=== PATIENT | female | born 1950 | race Caucasian/White ===

== ENCOUNTER 2017-10-17 20:59 | Emergency (ER) | payer MEDICARE, OTHER ==
--- NOTE | 2017-10-17 22:31 | RAD ---
THREE VIEWS OF RIGHT ANKLE: 10/17/17 COMPARISON: None. HISTORY: Pain, fall. FINDINGS: There is dorsal degenerative change involving the mid foot. The talar dome and ankle mortise are inta ct with no displaced fracture or evidence of dislocation seen. IMPRESSION: No displaced fracture or evidence of dislocation seen. POS: [facility]
--- NOTE | 2017-10-17 22:32 | RAD ---
FOUR VIEWS OF THE RIGHT KNEE: 10/17/17 COMPARISON: None. HISTORY: Injury, pain. FINDINGS: There is mild lateral compartment narrowing. There is moderate medial compartment narrowing with medi al osteophyte formation noted. There is mild patellofemoral joint space narrowing. No knee joint effu harshal, displaced fracture, or evidence of dislocation. IMPRESSION: Multicompartment degenerative change, most prominent medially. No acute osseous abnormality. POS: [facility]
--- NOTE | 2017-10-17 22:33 | RAD ---
TWO VIEWS OF THE RIGHT TIBIA AND FIBULA: 10/17/17 COMPARISON: None. HISTORY: Injury, trauma, pain. FINDINGS: No displaced fracture or evidence of dislocation seen. IMPRESSION: No acute findings. POS: [facility]
--- NOTE | 2017-10-18 00:03 | ULT ---
LEFT LOWER EXTREMITY VENOUS DOPPLER ULTRASOUND: 10/17/17 COMPARISON: None. HISTORY: Swelling, pain, redness, and edema, assess for DVT. TECHNIQUE: Multiplanar gould scale sonographic imaging of the venous structures of the left lower extremity obtai yue with color flow and spectral analysis. FINDINGS: Left common femoral vein, femoral vein, popliteal vein, greater saphenous vein, profunda femoral vein , posterior tibial vein and anterior tibial vein are patent. There is normal blood flow, augmentation and compression within the deep venous system of the left lower extremity with no evidence for DVT. IMPRESSION: No evidence for deep venous thrombosis of the left lower extremity. POS: [facility]
== END 2017-10-18 00:29 | disposition home or self-care (01) ==
LOC: ERS 20:59
DX: S80.01XA Contusion of right knee, initial encounter (principal); F31.9 Bipolar disorder, unspecified; F20.9 Schizophrenia, unspecified; K21.9 Gastro-esophageal reflux disease without esophagitis; E78.5 Hyperlipidemia, unspecified; F03.90 Unspecified dementia, unspecified severity, without behavioral disturbance, psychotic disturbance, mood disturbance, and anxiety; W05.0XXA Fall from non-moving wheelchair, initial encounter

== ENCOUNTER 2017-12-04 16:37 | Emergency (ER) | payer MEDICARE, OTHER ==
[2017-12-04 17:32] LABS: #Basophils 0.1 thou/uL (0.0-0.2); #Eosinphils 0.1 thou/uL (0.0-0.7); #Lymphocytes 1.9 thou/uL (1.20-3.40); #Monocytes 0.9 thou/uL (0.11-0.59); %Basophils 0.9 % (0.0-1.0); %Eosinophils 2.1 % (0.0-10.0); %Lymphocytes 31.5 % (21.0-51.0); %Monocytes 14.9 % (0.0-10.0); %Neutrophils 50.5 % (42.0-75.0); Hemoglobin 14.1 g/dL (12.0-16.0); Mean Corpuscular HGB CONC 31.7 g/dL (32.0-36.0); Mean Corpuscular Hemoglobin 28.6 pg (27.0-31.0); Mean Corpuscular Volume 90.3 fL (78.0-98.0); Mean Platelet Volume 8.7 fL (7.4-10.4); Platelet Count 178 thou/uL (130-400); RBC Distribution Width 13.2 % (11.5-14.5); Red Blood Cell (RBC) Count 4.94 mill/uL (4.20-5.40)
[2017-12-04 17:55] LABS: ALT (SGPT) 45 U/L (8-55); AST (SGOT) 47 U/L (5-34); Alkaline Phosphatase 90 U/L (40-150); Anion Gap 11 mmol/L (10-20); BUN (Urea Nitrogen) 9 mg/dL (9.8-20.1); Bilirubin, Total 0.3 mg/dL (0.2-1.2); Calc. Creatinine Clearance 0 mL/min (70-130); Calcium 9.2 mg/dL (7.8-10.44); Carbon Dioxide 29 mmol/L (23-31); Chloride 104 mmol/L (98-107); Estimated GFR-MDRD 51; Globulin 3.4 g/dL (2.4-3.5); Glucose 112 mg/dL (80-115); Potassium 3.9 mmol/L (3.5-5.1); Protein, Total 7.4 g/dL (6.0-8.3); Sodium 140 mmol/L (136-145)
--- NOTE | 2017-12-04 18:31 | ULT ---
VENOUS DOPPLER ULTRASOUND OF THE LEFT LOWER EXTREMITY: 12/04/17 HISTORY: Left lower extremity edema, pain and redness. TECHNIQUE: Garcia scale ultrasound with color flow and spectral doppler imaging of the deep venous system of the l eft lower extremity was performed. FINDINGS: There is good flow, compression, and augmentation noted in the left common femoral, femoral, deep fem oral, popliteal, posterior tibial and greater saphenous veins. IMPRESSION: No radiographic evidence of acute cardiopulmonary process. POS: [facility]
[2017-12-04] MEDS ORDERED: Acetaminophen 500 MG TAB ONE (18:43)
[2017-12-04] MEDS ORDERED: cefTRIAXone\\ROCEPHIN 2 GM VIAL ONE (18:43)
[2017-12-04 19:03] LABS: Bilirubin Negative (Negative); Blood, Urine Negative (Negative); Clarity CLEAR (Clear); Glucose, Urine (Dipstick) Negative (Negative); Leukocyte Negative (Negative); Nitrite Negative (Negative); Protein, Urine (Dipstick) Negative (Neg-Trace); Specific Gravity, Urine 1.008 (1.002-1.036); Urobilinogen 0.2 mg/dL (0.2-1.0); pH, Urine 7.5 (5.0-9.0)
== END 2017-12-04 20:08 | disposition home or self-care (01) ==
LOC: ERS 16:37
DX: L03.116 Cellulitis of left lower limb (principal); E11.9 Type 2 diabetes mellitus without complications; F20.9 Schizophrenia, unspecified; F31.9 Bipolar disorder, unspecified; Z79.899 Other long term (current) drug therapy
CPT/HCPCS: 80053; 81003; 85025; 85379; 96365; J0696

== ENCOUNTER 2021-08-11 15:32 | Inpatient (IN) | payer MEDICARE, MEDICAID ==
[~2021-08-11 15:32] MED LIST: Iopamidol 370 76% 100 ML VIAL ONE
[2021-08-11 16:30] LABS: #Eosinphils 0.1 thou/uL (0.0-0.7); #Lymphocytes 2.2 thou/uL (1.20-3.40); #Monocytes 0.8 thou/uL (0.11-0.59); %Basophils 0.4 % (0.0-1.0); %Eosinophils 1.2 % (0.0-10.0); %Lymphocytes 27.2 % (21.0-51.0); %Monocytes 10.1 % (0.0-10.0); %Neutrophils 61.1 % (42.0-75.0); Hemoglobin 14.5 g/dL (12.0-16.0); Mean Corpuscular HGB CONC 32.9 g/dL (32.0-36.0); Mean Corpuscular Hemoglobin 29.4 pg (27.0-31.0); Mean Corpuscular Volume 89.4 fL (78.0-98.0); Mean Platelet Volume 8.3 fL (7.4-10.4); Platelet Count 194 thou/uL (130-400); Red Blood Cell (RBC) Count 4.92 mill/uL (4.20-5.40); White Blood Cell (WBC) Count 8.1 thou/uL (4.8-10.8)
[2021-08-11 16:49] LABS: ALT (SGPT) 9 U/L (8-55); AST (SGOT) 11 U/L (5-34); Alkaline Phosphatase 88 U/L (40-110); Anion Gap 13 mmol/L (10-20); BUN (Urea Nitrogen) 14 mg/dL (9.8-20.1); Bilirubin, Total 0.3 mg/dL (0.2-1.2); Calc. Creatinine Clearance 0 mL/min (70-130); Calcium 9.2 mg/dL (7.8-10.44); Carbon Dioxide 29 mmol/L (23-31); Chloride 102 mmol/L (98-107); Globulin 3.3 g/dL (2.4-3.5); Glucose 87 mg/dL (80-115); Potassium 3.9 mmol/L (3.5-5.1); Protein, Total 7.3 g/dL (5.8-8.1); Sodium 140 mmol/L (136-145)
[2021-08-11 17:21] LABS: Bacteria/HPF None Seen HPF (None Seen); Bilirubin Negative (Negative); Blood, Urine Negative (Negative); Clarity Clear (Clear); Glucose, Urine (Dipstick) Normal (Negative); Ketone, Urine Negative (Negative); Leukocyte 75 Leu/uL (Negative); Nitrite Negative (Negative); Protein, Urine (Dipstick) Negative (Neg-Trace); RBC/HPF 0-3 HPF (0-3); Specific Gravity, Urine 1.018 (1.002-1.036); Squamous Epithelial 0-3 HPF (0-3); pH, Urine 6.5 (5.0-9.0)
[2021-08-11] MEDS ORDERED: Acetaminophen 650 MG Suppository PR PRN (21:03)
[2021-08-11] MEDS ORDERED: Ondansetron ODT 4 MG TAB PO PRN (21:03)
[2021-08-11] MEDS ORDERED: Ondansetron PF 4 MG/2 ML Vial IVP PRN (21:03)
[2021-08-11] MEDS ORDERED: Acetaminophen 325 MG TAB PO PRN (21:03)
[2021-08-11 21:53] VITALS: BMI 27.3
[2021-08-12] MEDS ORDERED: Dextrose 50% Abboject 50 ML SYRINGE SLOW IVP PRN (00:26)
[2021-08-12] MEDS ORDERED: HumaLOG 300 UNITS/3 ML VIAL SC PRN ×2 (00:26)
[2021-08-12] MEDS ORDERED: Dextrose 5% in Water 1,000 ML IV PRN (00:26)
[2021-08-12 02:45] LABS: Amphetamine Not Detected (NotDetected); Barbiturates Screen Not Detected (NotDetected); Benzodiazepine Screen Not Detected (NotDetected); Cocaine Metabolite Screen Not Detected (NotDetected); Methadone Not Detected (NotDetected); Methamphetamine Not Detected (NotDetected); Opiate Screen Not Detected (NotDetected); Oxycodone Screen Not Detected (NotDetected); Phencyclidine (PCP) Not Detected (NotDetected); THC/Cannabinoid Screen Not Detected (NotDetected); Tricyclic Screen Not Detected (NotDetected)
[2021-08-12 04:25] LABS: #Eosinphils 0.1 thou/uL (0.0-0.7); #Lymphocytes 2.3 thou/uL (1.20-3.40); #Monocytes 0.8 thou/uL (0.11-0.59); #Neutrophils 5.8 thou/uL (1.40-6.50); %Basophils 0.5 % (0.0-1.0); %Eosinophils 1.1 % (0.0-10.0); %Lymphocytes 25.8 % (21.0-51.0); %Neutrophils 63.6 % (42.0-75.0); Hemoglobin 14.1 g/dL (12.0-16.0); Mean Corpuscular Hemoglobin 29.5 pg (27.0-31.0); Mean Platelet Volume 8.7 fL (7.4-10.4); Platelet Count 170 thou/uL (130-400); RBC Distribution Width 12.8 % (11.5-14.5); Red Blood Cell (RBC) Count 4.79 mill/uL (4.20-5.40); White Blood Cell (WBC) Count 9.1 thou/uL (4.8-10.8)
[2021-08-12 04:46] LABS: Anion Gap 12 mmol/L (10-20); BUN (Urea Nitrogen) 13 mg/dL (9.8-20.1); Calc. Creatinine Clearance 81 mL/min (70-130); Calcium 9.6 mg/dL (7.8-10.44); Carbon Dioxide 32 mmol/L (23-31); Chloride 102 mmol/L (98-107); Glucose 100 mg/dL (80-115); Sodium 142 mmol/L (136-145)
[2021-08-12] MEDS: cefTRIAXone\\ROCEPHIN 1 GM in Sodium Chloride 0.9% 100 ML IVPB SCH (08:11)
[2021-08-12] MEDS: Enoxaparin Sodium 40 MG/0.4 ML SYRINGE SC SCH (08:11)
[2021-08-13] MEDS: Enoxaparin Sodium 40 MG/0.4 ML SYRINGE SC SCH (07:55)
[2021-08-13] MEDS: cefTRIAXone\\ROCEPHIN 1 GM in Sodium Chloride 0.9% 100 ML IVPB SCH (07:55)
[2021-08-13 11:51] VITALS: TEMP 97.6
[2021-08-13 12:31] VITALS: BP 150/79
== END 2021-08-13 17:30 | DRG 689 ==
LOC: ERS 15:32 → 2NO 20:25 → OBSVTOIN 08-12 12:22
PROVIDERS: ADMIT Internal Medicine; ATTEND Internal Medicine
DX: N39.0 Urinary tract infection, site not specified (principal); G93.41 Metabolic encephalopathy; F01.50 Vascular dementia, unspecified severity, without behavioral disturbance, psychotic disturbance, mood disturbance, and anxiety; Z20.822 Contact with and (suspected) exposure to COVID-19; E11.9 Type 2 diabetes mellitus without complications; K21.9 Gastro-esophageal reflux disease without esophagitis; E78.5 Hyperlipidemia, unspecified; F20.9 Schizophrenia, unspecified; F31.9 Bipolar disorder, unspecified; F40.9 Phobic anxiety disorder, unspecified; Z88.5 Allergy status to narcotic agent; Z88.8 Allergy status to other drugs, medicaments and biological substances; Z79.899 Other long term (current) drug therapy; Z90.49 Acquired absence of other specified parts of digestive tract; Z90.09 Acquired absence of other part of head and neck
CPT/HCPCS: 36415; 36416; 70450; 71045; 74177; 80048; 80053; 80306; 81003; 81015; 84443; 84484; 85025; 87086; 93005; 93306; J0696; J1650; J3490; Q9967; U0003; U0005

== ENCOUNTER 2021-11-09 09:50 | Emergency (ER) | payer MEDICARE, OTHER ==
[2021-11-09 11:59] LABS: #Eosinphils 0.1 thou/uL (0.0-0.7); #Lymphocytes 1.5 thou/uL (1.20-3.40); #Monocytes 0.8 thou/uL (0.11-0.59); #Neutrophils 3.5 thou/uL (1.40-6.50); %Basophils 0.2 % (0.0-1.0); %Eosinophils 2.2 % (0.0-10.0); %Lymphocytes 25.6 % (21.0-51.0); %Monocytes 12.9 % (0.0-10.0); %Neutrophils 59.2 % (42.0-75.0); Hemoglobin 13.1 g/dL (12.0-16.0); Mean Corpuscular HGB CONC 32.2 g/dL (32.0-36.0); Mean Corpuscular Hemoglobin 29.2 pg (27.0-31.0); Mean Corpuscular Volume 90.7 fL (78.0-98.0); Mean Platelet Volume 8.7 fL (7.4-10.4); Platelet Count 193 thou/uL (130-400); RBC Distribution Width 13.1 % (11.5-14.5); Red Blood Cell (RBC) Count 4.47 mill/uL (4.20-5.40)
[2021-11-09 12:13] LABS: Bacteria/HPF None Seen HPF (None Seen); Bilirubin Negative (Negative); Blood, Urine Negative (Negative); Clarity Clear (Clear); Glucose, Urine (Dipstick) Normal (Negative); Ketone, Urine Negative (Negative); Leukocyte 25 Leu/uL (Negative); Nitrite Negative (Negative); Protein, Urine (Dipstick) Negative (Neg-Trace); RBC/HPF 0-3 HPF (0-3); Specific Gravity, Urine 1.008 (1.002-1.036); Squamous Epithelial 0-3 HPF (0-3); pH, Urine 7.5 (5.0-9.0)
[2021-11-09 12:31] LABS: ALT (SGPT) 7 U/L (8-55); AST (SGOT) 14 U/L (5-34); Albumin 4.1 g/dL (3.4-4.8); Alkaline Phosphatase 81 U/L (40-110); Anion Gap 16 mmol/L (10-20); BUN (Urea Nitrogen) 6 mg/dL (9.8-20.1); Bilirubin, Total 0.4 mg/dL (0.2-1.2); Calc. Creatinine Clearance 0 mL/min (70-130); Calcium 8.9 mg/dL (7.8-10.44); Carbon Dioxide 29 mmol/L (23-31); Chloride 100 mmol/L (98-107); Estimated GFR 77; Globulin 2.7 g/dL (2.4-3.5); Glucose 82 mg/dL (80-115); Potassium 3.7 mmol/L (3.5-5.1); Protein, Total 6.8 g/dL (5.8-8.1); Sodium 141 mmol/L (136-145)
== END 2021-11-09 15:23 | disposition home or self-care (01) ==
LOC: ERS 09:50
DX: F03.90 Unspecified dementia, unspecified severity, without behavioral disturbance, psychotic disturbance, mood disturbance, and anxiety (principal); E11.9 Type 2 diabetes mellitus without complications; E78.5 Hyperlipidemia, unspecified
CPT/HCPCS: 36415; 70450; 71045; 80053; 81003; 81015; 84484; 85025; 87040; 93005

== ENCOUNTER 2021-11-25 17:28 | Emergency (ER) | payer MEDICARE, OTHER ==
[2021-11-25 18:41] LABS: #Basophils 0.1 thou/uL (0.0-0.2); #Eosinphils 0.1 thou/uL (0.0-0.7); #Lymphocytes 1.8 thou/uL (1.20-3.40); #Monocytes 1.1 thou/uL (0.11-0.59); #Neutrophils 4.1 thou/uL (1.40-6.50); %Basophils 0.8 % (0.0-1.0); %Eosinophils 1.9 % (0.0-10.0); %Lymphocytes 25.1 % (21.0-51.0); %Monocytes 14.9 % (0.0-10.0); %Neutrophils 57.4 % (42.0-75.0); Hemoglobin 11.8 g/dL (12.0-16.0); Mean Corpuscular HGB CONC 32.7 g/dL (32.0-36.0); Mean Corpuscular Hemoglobin 29.5 pg (27.0-31.0); Mean Corpuscular Volume 90.1 fL (78.0-98.0); Mean Platelet Volume 7.6 fL (7.4-10.4); Platelet Count 279 thou/uL (130-400); RBC Distribution Width 13.4 % (11.5-14.5); Red Blood Cell (RBC) Count 3.98 mill/uL (4.20-5.40); White Blood Cell (WBC) Count 7.2 thou/uL (4.8-10.8)
[2021-11-25 18:48] LABS: Prothrombin Time 12.7 sec (12.0-14.7)
[2021-11-25 18:49] LABS: PTT 28.6 sec (22.9-36.1)
[2021-11-25 19:00] LABS: ALT (SGPT) Less than 7 U/L (8-55); AST (SGOT) 8 U/L (5-34); Albumin 3.7 g/dL (3.4-4.8); Alkaline Phosphatase 105 U/L (40-110); Anion Gap 13 mmol/L (10-20); BUN (Urea Nitrogen) 16 mg/dL (9.8-20.1); Bilirubin, Total 0.4 mg/dL (0.2-1.2); CK (CPK) 37 U/L (29-168); CRP (Inflammatory) Less than 0.50 mg/dL (= or < 0.5); Calc. Creatinine Clearance 0 mL/min (70-130); Carbon Dioxide 27 mmol/L (23-31); Chloride 102 mmol/L (98-107); Estimated GFR 77; Globulin 2.8 g/dL (2.4-3.5); Glucose 92 mg/dL (80-115); Protein, Total 6.5 g/dL (5.8-8.1); Sodium 138 mmol/L (136-145)
== END 2021-11-26 02:00 | disposition home or self-care (01) ==
LOC: ERS 17:28
DX: R21 Rash and other nonspecific skin eruption (principal); T50.905A Adverse effect of unspecified drugs, medicaments and biological substances, initial encounter
CPT/HCPCS: 36415; 80053; 82550; 83605; 85025; 85610; 85652; 85730; 86140; 99283